=== PATIENT | male | born 1965 | race Caucasian/White ===

== ENCOUNTER → 2016-11-07 | Outpatient (CLI) | payer SELFPAY ==
--- NOTE | 2016-11-07 16:57 | CT ---
HISTORY: Screening. Cardiac CTA with calcium scoring Technique: Multiple axial images of the chest were obtained on a [address] from the aortic arch to the base of the heart with retrospective cardiac gating. Noncontrast evaluation of th e heart was performed for calcium scoring with prospective gating. Cardiac functional analysis was pe rformed with segmentation of the cardiac cycle. 3D reconstructions and vessel analysis were performe d on a vital imaging workstation. Dose reduction techniques including Automated Exposure Control (AE C) and adjustment of mA and kV were utilized. Findings: A total calcium score of 3 is observed. The score results in less than 10% likelihood of coronary ev ents given the age and sex matched cohort analysis. Evaluation of the coronary arterial system demonstrates no significant disease of the left main, left circumflex, or LAD. Mild disease is noted in the right coronary artery. Extracardiac findings: No pathologically enlarged lymphadenopathy can be observed. The aortic arch is unremarkable in its a ppearance with normal vascular configuration. No significant pericardial effusion can be identified. The visualized portions of the lung parenchyma are unremarkable. No lytic or blastic lesions can b e identified within the visualized bony thorax. The visualized portions of the abdomen demonstrate n ormal perfusion patterns of the spleen and liver. IMPRESSION: Total calcium score of 3 with less than 10% likely should of Coronary artery events. Reported By:
== END ==
LOC: RAD 15:19
PROVIDERS: ATTEND Nurse Practitioner
DX: Z13.6 Encounter for screening for cardiovascular disorders (principal)